=== PATIENT | female | born 1965 | race Caucasian/White ===

== ENCOUNTER → 2019-03-26 | Outpatient (CLI) | payer OTHER ==
--- NOTE | 2019-03-26 11:08 | Diagnostic Imaging Report ---
INDICATION: Right knee pain AP and lateral views of the right knee are obtained. FINDINGS: No acute fracture or dislocation is identified. No abnormal lytic or sclerotic focus is seen, and there is no radiopaque foreign body. IMPRESSION: No acute abnormality. Dictated by: Dictated on workstation # [id number]
--- NOTE | 2019-03-26 15:18 | Diagnostic Imaging Report ---
INDICATION: Back pain. TECHNIQUE: AP and lateral views of the lumbar spine are obtained. FINDINGS: The lumbar vertebrae are normal in height and alignment. There is no fracture or compression deformity. There are small osteophytes throughout the lumbar spine, especially at L1, L2, and L3. There is no significant focal disc space narrowing. Incidental note made of a calcification overlying the right renal shadow which may represent nephrolithiasis. IMPRESSION: Diffuse mild degenerative findings with no acute bony abnormality. Dictated by: Dictated on workstation # [id number]
== END ==
LOC: RAD 09:26
PROVIDERS: ATTEND Family Medicine
DX: Z02.71 Encounter for disability determination (principal); M47.816 Spondylosis without myelopathy or radiculopathy, lumbar region; M25.561 Pain in right knee
CPT/HCPCS: 72100; 73560

== ENCOUNTER 2020-01-20 12:28 | Outpatient (RCR) | payer OTHER | END 2020-04-19 | disposition home or self-care (01) | LOC: EDSEX | PROVIDERS: ATTEND Nurse Practitioner | DX: R13.10 Dysphagia, unspecified (principal) ==

== ENCOUNTER → 2020-01-26 | Outpatient (CLI) | payer OTHER ==
--- NOTE | 2020-01-26 10:29 | Diagnostic Imaging Report ---
INDICATION: Dysphagia. TECHNIQUE: The procedure was performed in conjunction with Speech Pathology. Video fluoroscopy was performed during the swallowing of barium in multiple consistencies. A total of 41 seconds of fluoroscopic time was utilized. FINDINGS: The patient ingested thin consistency with a spoon and straw as well as applesauce, banana, ground meat, and cracker consistency. All consistencies appear normal. There is normal epiglottic tilt and laryngeal elevation. No laryngeal penetration or aspiration was observed. No residue is detected. IMPRESSION: Normal modified barium swallow. Dictated by: Dictated on workstation # [id number]
== END ==
LOC: RAD 09:50
PROVIDERS: ATTEND Nurse Practitioner
DX: R13.10 Dysphagia, unspecified (principal)
CPT/HCPCS: 74230